=== PATIENT | female | born 1965 | race Caucasian/White ===

== ENCOUNTER → 2017-08-06 | Outpatient (CLI) | payer OTHER ==
[~2017-08-06] MED LIST: IOHEXOL 240 MG/ML 50ML VIAL. ONE; IOHEXOL 300 MG/ML 75 ML VIAL. IV ONE
--- NOTE | 2017-08-06 11:45 | RAD ---
CT study of the abdomen and pelvis with contrast History: Left upper quadrant abdominal pain. Constipation. Comparison: None available. Technique: After IV infusion of 75 cc of Omnipaque 300, helical CT scanning of the abdomen and pelvis was performed. GI contrast was administered per mouth. PQRS Compliance Statement: One or more of the following individualized dose reduction techniques were utilized for this examination: 1. Automated exposure control 2. Adjustment of the mA and/or kV according to patient size 3. Use of iterative reconstruction technique Comparison: None available. Findings: The liver and spleen and pancreas and gallbladder are normal. No extrahepatic biliary ductal dilatation is seen. No adrenal mass is evident. Both kidneys are normal. No hydronephrosis or hydroureter is seen. No focal aneurysmal dilatation of the abdominal aorta is seen. No enlarged abdominal or pelvic lymphadenopathy is seen. Urinary bladder wall smooth. No obstructive bowel pattern is evident. No bowel thickening is evident. The terminal ileum is unremarkable. The appendix is normal. No free air or free fluid or mesenteric inflammatory change is seen. No uterine mass is evident. No dominant ovarian cyst or mass is seen. No osteolytic process is seen. No lung base consolidation is evident. IMPRESSION: No acute abnormality of the abdomen or pelvis. Mild fecal retention is seen throughout the colon.
== END | disposition home or self-care (01) ==
LOC: CT 08:08
PROVIDERS: ATTEND Internal Medicine Gastroenterology
DX: K59.00 Constipation, unspecified (principal); R10.12 Left upper quadrant pain
CPT/HCPCS: 74177; Q9966; Q9967